=== PATIENT | female | born 1965 | race Caucasian/White ===

== ENCOUNTER 2017-04-29 14:46 | Emergency (ER) | payer SELFPAY ==
[~2017-04-29] VITALS: Ht 154.9 cm; Wt 87.1 kg
[~2017-04-29 14:46] MED LIST: ASPI325EC; Antivert25 MG PO; CYCL10 PO; FOLI1; HYDACE5 PO; LORA2 PO; METO50ER; METPRE4DP PO; NEOPOLHCSU RIGHTEAR; Percocet 5-3251 EACH PO; RXLORA1 PO; Tenormin25 MG PO
[2017-04-29] MEDS ORDERED: CYCL10 PO (14:55)
[2017-04-29 16:02] LABS: Albumin, Blood 4.2 g/dL (3.4-5.0); Bilirubin, Total 0.2 mg/dL (0.1-1.0); Bun/Creatinine Ratio 18.1 (12.0-20.0); Calcium, Blood 9.6 mg/dL (8.5-10.1); Creatinine, Blood 1.05 mg/dL (0.40-1.00); Globulin, Blood 4.2 g/dL (2.2-4.0); Total Protein, Blood 8.4 g/dL (6.4-8.2)
[2017-04-29] MEDS ORDERED: Hydrochlorothia25 MG PO (16:59)
[2017-04-29] MEDS ORDERED: LOSA50 PO (16:59)
== END 2017-04-29 17:08 | disposition home or self-care (01) ==
LOC: ER 14:46
DX: I10 Essential (primary) hypertension (principal); F17.210 Nicotine dependence, cigarettes, uncomplicated; Z79.899 Other long term (current) drug therapy
CPT/HCPCS: 36415; 80053; 93005; 93010; 96374; 99283

== ENCOUNTER 2018-01-13 10:22 | Emergency (ER) | payer SELFPAY ==
[~2018-01-13] VITALS: Ht 152.4 cm; Wt 90.3 kg
[~2018-01-13 10:22] MED LIST changes: +Hydrochloroth12.5 MG PO; +Hydrochlorothia25 MG PO; +LISI20 PO; +LOSA50 PO; +Robaxin-750750 MG PO
[2018-01-13 11:36] LABS: BASOPHILS ABSOLUTE AUTO 0.06 K/mm3 (0.00-0.23); BASOPHILS PERCENT AUTO 1 % (0-2); EOSINOPHILS PERCENT AUTO 2 % (0-6); Hematocrit 54.4 % (33.0-51.0); Hemoglobin 19.2 g/dL (11.5-16.0); IMMATURE GRAN ABSOLUTE AUTO 0.03 K/mm3 (0.00-0.10); IMMATURE GRAN PERCENT AUTO 0 % (0-1); LYMPHOCYTES ABSOLUTE AUTO 2.91 K/mm3 (0.84-5.20); LYMPHOCYTES PERCENT AUTO 25 % (21-46); MONOCYTES ABSOLUTE AUTO 0.88 K/mm3 (0.16-1.47); MONOCYTES PERCENT AUTO 8 % (4-13); Mean Corpuscular HGB 31.3 pg (26.0-34.0); Mean Corpuscular HGB Conc 35.3 g/dL (31.5-36.5); Mean Corpuscular Volume 89 fL (80-100); NEUTROPHILS PERCENT AUTO 65 % (41-73); Platelet Count 314 K/mm3 (150-400); RDW Standard Deviation 39.3 fL (35.1-46.3); Red Blood Cell Count 6.14 M/mm3 (3.80-5.20); White Blood Cell Count 11.48 K/mm3 (4.00-11.30)
[2018-01-13 11:59] LABS: Alanine Aminotransfer (ALT/SGP 35 U/L (12-78); Albumin, Blood 4.3 g/dL (3.4-5.0); Alk Phos 109 U/L (50-136); Anion Gap 11 mmol/L (6-16); Aspartate Aminotrans (AST/SGOT 17 U/L (12-37); Bilirubin, Total 0.5 mg/dL (0.1-1.0); Blood Urea Nitrogen 18 mg/dL (8-24); Bun/Creatinine Ratio 22.8 (12.0-20.0); CO2, Blood 25 mmol/L (21-32); Calcium, Blood 9.5 mg/dL (8.5-10.1); Chloride, Blood 99 mmol/L (98-108); Creatinine, Blood 0.79 mg/dL (0.40-1.00); Globulin, Blood 4.1 g/dL (2.2-4.0); Glomerular Filtration Rate >60 (60-); Glucose, Blood 172 mg/dL (70-99); Potassium, Blood 3.2 mmol/L (3.5-5.5); Sodium, Blood 135 mmol/L (136-145); Total Protein, Blood 8.4 g/dL (6.4-8.2)
[2018-01-13] MEDS ORDERED: LOSA25 PO (13:39)
[2018-01-13] MEDS ORDERED: Aspir-Low81 MG PO (13:39)
== END 2018-01-13 14:00 | disposition home or self-care (01) ==
LOC: ER 10:22
PROVIDERS: Physician Assistant
DX: R20.8 Other disturbances of skin sensation (principal); I10 Essential (primary) hypertension; F17.210 Nicotine dependence, cigarettes, uncomplicated; Z79.899 Other long term (current) drug therapy; Z86.73 Personal history of transient ischemic attack (TIA), and cerebral infarction without residual deficits
CPT/HCPCS: 36415; 80053; 85025; 93005; 93010; 99284-25

== ENCOUNTER → 2018-03-08 | Outpatient (CLI) | payer SELFPAY ==
[~2018-03-08] MED LIST changes: +Aspir-Low81 MG PO; +LOSA25 PO
[2018-03-08 13:01] LABS: BASOPHILS ABSOLUTE AUTO 0.04 K/mm3 (0.00-0.23); BASOPHILS PERCENT AUTO 1 % (0-2); EOSINOPHILS ABSOLUTE AUTO 0.17 K/mm3 (0.00-0.68); EOSINOPHILS PERCENT AUTO 3 % (0-6); Hematocrit 49.5 % (33.0-51.0); Hemoglobin 17.7 g/dL (11.5-16.0); IMMATURE GRAN ABSOLUTE AUTO 0.02 K/mm3 (0.00-0.10); IMMATURE GRAN PERCENT AUTO 0 % (0-1); LYMPHOCYTES ABSOLUTE AUTO 2.36 K/mm3 (0.84-5.20); LYMPHOCYTES PERCENT AUTO 35 % (21-46); MONOCYTES ABSOLUTE AUTO 0.39 K/mm3 (0.16-1.47); MONOCYTES PERCENT AUTO 6 % (4-13); Mean Corpuscular HGB 31.2 pg (26.0-34.0); Mean Corpuscular HGB Conc 35.8 g/dL (31.5-36.5); Mean Corpuscular Volume 87 fL (80-100); Mean Platelet Volume 9.6 fL (9.1-12.4); NEUTROPHILS ABSOLUTE AUTO 3.83 K/mm3 (1.96-9.15); NEUTROPHILS PERCENT AUTO 56 % (41-73); Platelet Count 338 K/mm3 (150-400); RDW Coefficient Variation 12.2 % (11.7-14.2); RDW Standard Deviation 38.9 fL (35.1-46.3); Red Blood Cell Count 5.68 M/mm3 (3.80-5.20); White Blood Cell Count 6.81 K/mm3 (4.00-11.30)
[2018-03-08 13:21] LABS: Alanine Aminotransfer (ALT/SGP 32 U/L (12-78); Albumin, Blood 3.7 g/dL (3.4-5.0); Albumin/Globulin Ratio 0.9 (0.8-1.8); Alk Phos 109 U/L (40-126); Aspartate Aminotrans (AST/SGOT 18 U/L (12-37); Bilirubin, Total 0.2 mg/dL (0.1-1.0); Blood Urea Nitrogen 13 mg/dL (8-24); Bun/Creatinine Ratio 14.8 (12.0-20.0); Calcium, Blood 9.3 mg/dL (8.5-10.1); Creatinine, Blood 0.88 mg/dL (0.40-1.00); Globulin, Blood 4.1 g/dL (2.2-4.0); Glomerular Filtration Rate >60 (60-); Glucose, Blood 164 mg/dL (70-99); Thyroid Stimulating Hormone 1.919 uIU/mL (0.360-4.800); Total Protein, Blood 7.8 g/dL (6.4-8.2)
[2018-03-09 07:29] LABS: Potassium, Blood 4.4 mmol/L (3.5-5.5); Sodium, Blood 140 mmol/L (136-145)
[2018-03-09 07:30] LABS: Anion Gap 13 mmol/L (6-16); CO2, Blood 23 mmol/L (21-32); Chloride, Blood 104 mmol/L (98-108)
== END | disposition home or self-care (01) ==
LOC: LAB EV 12:57 → LAB SHORT 12:57
PROVIDERS: Physician Assistant
DX: R53.83 Other fatigue (principal)
CPT/HCPCS: 80053; 83690; 84443; 85025; 85379

== ENCOUNTER → 2024-10-24 | Outpatient (CLI) | payer OTHER ==
[2024-10-24 15:30] LABS: Source, Urine Voided
[2024-10-24 16:38] LABS: Red Blood Cells, Urine 0-2 /hpf (0-2); White Blood Cells, Urine 0-2 /hpf (0-5)
[2024-10-24 18:47] LABS: Creatinine, Urine Random 106.0 mg/dL (27.00-270.00)
[2024-10-24 18:49] LABS: Microalb/Creat Ratio UR, Rand 1254.72 mg/g (0.000-30.000); Microalbumin, Random Urine 1330.0 mg/L (0.000-20.000)
== END ==
LOC: LAB SHORT 15:28 → LAB 15:28
PROVIDERS: Nurse Practitioner Family
DX: E11.65 Type 2 diabetes mellitus with hyperglycemia (principal); N02.9 Recurrent and persistent hematuria with unspecified morphologic changes
CPT/HCPCS: 81015; 82043; 82570